=== PATIENT | female | born 1990 | race Two or more races ===

== ENCOUNTER 2019-12-11 21:43 | Outpatient (CLI) | payer OTHER | END 2019-12-11 21:44 | disposition critical access hospital (66) | LOC: EMS 21:43 | PROVIDERS: ATTEND Surgery | DX: O99.89 Other specified diseases and conditions complicating pregnancy, childbirth and the puerperium (principal); R10.9 Unspecified abdominal pain; R06.02 Shortness of breath; R68.83 Chills (without fever) | CPT/HCPCS: A0425; A0429 ==

== ENCOUNTER 2019-12-11 22:23 | Outpatient (CLI) | payer OTHER ==
--- NOTE | 2019-12-11 22:38 | HISTORY & PHYSICAL EXAMINATION ---
Admit History - Visit Reason Visit Reason: Other (29yo at 35 2/7 weeks by first trimester scan not c/w LMP; no records available however US documented for 9w4d done on 06/14/19. O+, GBS unknown. Presents with c/o dyspnea this evening, palpitations, dizziness and intermittent mid abdominal pain. Also notes suprapubic pain with voiding. No vaginal bleeding or fluid leak. C/O decreased movement when this all began, now notes it to be normal. No n/v/f/c or headache. No visual changes.) - : 3 Parity: 1 Premature: 0 Ectopic: 0 Care: positive: [facility], Other (Care in [place] until 1 week ago) Complications This : positive: Other (First trimester bleeding) Smoking Status: Never smoker - Mother's Labs Mother's Blood Type: positive: O Mother's RH: positive: Positive GBS: positive: Other Rubella Status: positive: Non-immune (GBS unknown RPR/HIV/HepB neg GC/chlam neg Glucola 89) Meds/Allgy - Allergies Allergies/Adverse Reactions: Allergies Allergy/AdvReac Type Severity Reaction Status Date / Time No Known Drug Allergies Allergy Verified 12/11/19 23:00 Review of Systems - Constitutional Constitutional: reports: Chills, Weakness - Eyes Eyes: denies: Blurred vision - Cardiovascular Cariovascular: reports: Palpitations, Lightheadedness. denies: Chest pain - Respiratory Respiratory: reports: SOB at rest, SOB with exertion. denies: Cough, Sputum production, Wheezing - Gastrointestinal Gastrointestinal: reports: Abdominal pain. denies: Nausea, Vomiting - Genitourinary Genitourinary: reports: Dysuria. denies: Flank pain - Neurological Neurological: reports: Dizziness. denies: Headache - Psychiatric Psychiatric: reports: Anxiety Physical - Abdominal Exam Vital Signs: 122/76 rpt 113/74 Pulse 90's O2 sat 98-100% on RA RR 16 afebrile Contraction Frequency (min/apart): q3-4 Contraction Intensity: positive: Mild to moderate Uterine Resting Tone: positive: Soft - Monitoring Heart Rate Baseline: 140's Strip Review: positive: Category I - Presentation Presentation: positive: Vertex - Vaginal Exam Membranes: positive: Membranes intact (Vertex by scan. Nml amniotic fluid volume, fundal placenta) Dilation (in cm): 0 Effacement (%): 0 Station: positive: -3 Cervical Position: positive: Posterior (Moderate DC c/w BV) - Speculum Exam Speculum Exam Performed: positive: Yes Plan for Labor - Plan For Labor Plan for Labor: 29yo at 35 2/7 weeks with intermittent tachycardia, dyspnea and dizziness, uterine contractions and suprapubic pain. Recent travel. Labs pending. Nasal swab sent for COVID IV hydration Serial vitals Category 1 tracing Exam - Exam Vital Signs: Vital Signs (72 hours) 12/11/19 12/11/19 22:38 22:52 Temperature 98.3 F 100.9 F H Heart Rate [ 136 H Monitoring electrodes] Respiratory 24 Rate Blood Pressure 144/73 H [Right Brachial artery] O2 Saturation 100 General: Alert, Oriented x3, Cooperative, Mild distress, Moderate distress Lungs: Clear to auscultation, Normal air movement Cardiovascular: Regular rate, Normal S1, Normal S2, Other (2/6 systolic murmur mahendra LSB. Borderline tachycardia) Abdomen: Normal bowel sounds, Soft, No masses (Mild contractions, suprapubic tenderness) Extremities: No edema Skin: No rashes Psych/Mental Status: Mental status NL
[2019-12-11 22:49] LABS: BASOPHILS # (AUTO) 0.1 10^3/uL (0.0-0.1); BASOPHILS % (AUTO) 0.5 %; EOSINOPHILS # (AUTO) 0.1 10^3/uL (0.0-0.7); EOSINOPHILS % (AUTO) 1.2 %; HGB - HEMOGLOBIN 11.5 g/dL (12.0-16.0); LYMPHOCYTES % (AUTO) 19.3 %; MEAN CORPUSCULAR HEMOGLOBIN 31.9 pg (27.0-31.0); MEAN CORPUSCULAR HGB CONC 34.3 g/dL (32.0-36.0); MEAN CORPUSCULAR VOLUME 93.1 fL (81.0-99.0); MEAN PLATELET VOLUME 9.8 fL (7.9-10.8); MONOCYTES # (AUTO) 0.7 10^3/uL (0.0-1.0); MONOCYTES % (AUTO) 6.7 %; NEUTROPHILS # (AUTO) 7.3 10^3/uL (1.5-6.6); NEUTROPHILS % (AUTO) 70.5 %; PLT - PLATELET COUNT 192 10^3/uL (130-450); RED CELL DISTRIBUTION WIDTH 12.3 % (12.0-15.0); WHITE BLOOD COUNT 10.4 x10^3/uL (4.8-10.8)
[2019-12-11] MEDS ORDERED: LACTATED RINGERS 1,000 ML IV ONE (22:58)
[2019-12-11 23:00] LABS: ALBUMIN 3.5 g/dL (3.2-5.5); BILIRUBIN,TOTAL 0.4 mg/dL (0.2-1.0); CALCIUM 8.8 mg/dL (8.5-10.3); CREATININE 0.3 mg/dL (0.4-1.0)
[2019-12-11 23:06] VITALS: BP 144/73
[2019-12-11 23:33] LABS: BILIRUBIN,URINE NEGATIVE (NEGATIVE); CLARITY,URINE CLEAR (CLEAR); GLUCOSE, URINE (UA) NEGATIVE (NEGATIVE); KETONES,URINE (UA) NEGATIVE (NEGATIVE); LEUKOCYTE ESTERASE, URINE SMALL (NEGATIVE); NITRITE,URINE NEGATIVE (NEGATIVE); OCCULT BLOOD,URINE TRACE-INTA (NEGATIVE); PH,URINE 6.5 PH (5.0-7.5); PROTEIN,URINE NEGATIVE (NEGATIVE); UROBILINOGEN,URINE 0.2 (NORMAL) E.U./dL (NORMAL)
[2019-12-11 23:38] LABS: BACTERIA,URINE Rare /HPF (None Seen); RBC,URINE 0-5 /HPF (0-5); SQUAMOUS EPITHELIAL CELL,UR MANY Squamous (<= Few)
--- NOTE | 2019-12-11 23:41 | PROVIDER PROGRESS NOTE ---
Subjective - Prog Note Date Prog Note Date: 12/11/19 Prog Note Time: 23:38 - Subjective Subjective: Up to BR and was dizzy, tachycardic 120-130's. Resolved with rest. Up again without symptoms. Rpt vitals temp 38.3 accompanied by rigors otherwise stable Exam unremarkable. CBC, CMP and UA returned all normal. Nasal swab pending. Continue obs and serial exams Objective - Vital Signs/Intake & Output Vital Signs: Vital Signs x48h Temp Pulse Resp BP Pulse Ox 12/11/19 22:52 100.9 F H 136 H 24 144/73 H 100 12/11/19 22:38 98.3 F - Lab Results Fish Bones: 12/11/19 22:42 12/11/19 22:42 Other Labs: Lab Results x24hrs 12/11/19 12/11/19 12/11/19 Range/Units 23:30 23:30 22:42 WBC (4.8-10.8) x10^3/uL RBC (4.20-5.40) 10^6/uL Hgb (12.0-16.0) g/dL Hct (37.0-47.0) % MCV (81.0-99.0) fL MCH (27.0-31.0) pg MCHC (32.0-36.0) g/dL RDW (12.0-15.0) % Plt Count (130-450) 10^3/uL MPV (7.9-10.8) fL Neut # (Auto) (1.5-6.6) 10^3/uL Lymph # (Auto) (1.5-3.5) 10^3/uL [place] # (Auto) (0.0-1.0) 10^3/uL Eos # (Auto) (0.0-0.7) 10^3/uL Baso # (Auto) (0.0-0.1) 10^3/uL Absolute Nucleated RBC x10^3/uL Nucleated RBC % /100WBC Sodium 131 L (135-145) mmol/L Potassium 3.7 (3.5-5.0) mmol/L Chloride 101 (101-111) mmol/L Carbon Dioxide 20 L (21-32) mmol/L Anion Gap 10.0 (6-13) BUN 10 (6-20) mg/dL Creatinine 0.3 L (0.4-1.0) mg/dL Estimated GFR (MDRD) 265 (>89) Glucose 99 (70-100) mg/dL Calcium 8.8 (8.5-10.3) mg/dL Total Bilirubin 0.4 (0.2-1.0) mg/dL AST 21 (10-42) IU/L ALT 12 (10-60) IU/L Alkaline Phosphatase 86 (42-121) IU/L Total Protein 7.0 (6.7-8.2) g/dL Albumin 3.5 (3.2-5.5) g/dL Globulin 3.5 (2.1-4.2) g/dL Albumin/Globulin Ratio 1.0 (1.0-2.2) Urine Color Cancelled YELLOW Urine Clarity Cancelled CLEAR (CLEAR) Urine pH Cancelled 6.5 (5.0-7.5) PH Ur Specific [place] Cancelled 1.015 (1.002-1.030) Urine Protein Cancelled NEGATIVE (NEGATIVE) mg/dL Urine Glucose (UA) Cancelled NEGATIVE (NEGATIVE) mg/dL Urine Ketones Cancelled NEGATIVE (NEGATIVE) mg/dL Urine Occult Blood Cancelled TRACE-INTA (NEGATIVE) Urine Nitrite Cancelled NEGATIVE (NEGATIVE) Urine Bilirubin Cancelled NEGATIVE (NEGATIVE) Urine Urobilinogen Cancelled 0.2 (NORMAL) (NORMAL) E.U./dL Ur Leukocyte Esterase Cancelled SMALL H (NEGATIVE) Urine RBC Cancelled Urine WBC Cancelled Urine WBC Clumps Cancelled Ur Epithelial Cells Cancelled Ur Squamous Epith Cells Cancelled Urine Crystals Cancelled Amorphous Sediment Cancelled Urine Bacteria Cancelled Urine Casts Cancelled Urine Starch Cancelled Urine Mucus Cancelled Urine Trichomonas Cancelled Urine Yeast Cancelled Urine Sperm Cancelled Ur Oval Fat Bodies Cancelled Urine Culture Comments Cancelled 12/11/19 Range/Units 22:42 WBC 10.4 (4.8-10.8) x10^3/uL RBC 3.60 L (4.20-5.40) 10^6/uL Hgb 11.5 L (12.0-16.0) g/dL Hct 33.5 L (37.0-47.0) % MCV 93.1 (81.0-99.0) fL MCH 31.9 H (27.0-31.0) pg MCHC 34.3 (32.0-36.0) g/dL RDW 12.3 (12.0-15.0) % Plt Count 192 (130-450) 10^3/uL MPV 9.8 (7.9-10.8) fL Neut # (Auto) 7.3 H (1.5-6.6) 10^3/uL Lymph # (Auto) 2.0 (1.5-3.5) 10^3/uL [place] # (Auto) 0.7 (0.0-1.0) 10^3/uL Eos # (Auto) 0.1 (0.0-0.7) 10^3/uL Baso # (Auto) 0.1 (0.0-0.1) 10^3/uL Absolute Nucleated RBC 0.00 x10^3/uL Nucleated RBC % 0.0 /100WBC Sodium (135-145) mmol/L Potassium (3.5-5.0) mmol/L Chloride (101-111) mmol/L Carbon Dioxide (21-32) mmol/L Anion Gap (6-13) BUN (6-20) mg/dL Creatinine (0.4-1.0) mg/dL Estimated GFR (MDRD) (>89) Glucose (70-100) mg/dL Calcium (8.5-10.3) mg/dL Total Bilirubin (0.2-1.0) mg/dL AST (10-42) IU/L ALT (10-60) IU/L Alkaline Phosphatase (42-121) IU/L Total Protein (6.7-8.2) g/dL Albumin (3.2-5.5) g/dL Globulin (2.1-4.2) g/dL Albumin/Globulin Ratio (1.0-2.2) Urine Color Urine Clarity (CLEAR) Urine pH (5.0-7.5) PH Ur Specific [place] (1.002-1.030) Urine Protein (NEGATIVE) mg/dL Urine Glucose (UA) (NEGATIVE) mg/dL Urine Ketones (NEGATIVE) mg/dL Urine Occult Blood (NEGATIVE) Urine Nitrite (NEGATIVE) Urine Bilirubin (NEGATIVE) Urine Urobilinogen (NORMAL) E.U./dL Ur Leukocyte Esterase (NEGATIVE) Urine RBC Urine WBC Urine WBC Clumps Ur Epithelial Cells Ur Squamous Epith Cells Urine Crystals Amorphous Sediment Urine Bacteria Urine Casts Urine Starch Urine Mucus Urine Trichomonas Urine Yeast Urine Sperm Ur Oval Fat Bodies Urine Culture Comments
[2019-12-11] MEDS ORDERED: FAMOTIDINE 20 MG TABLET PO SCH (23:45)
[2019-12-11] MEDS ORDERED: metroNIDAZOLE 250 MG TABLET PO SCH (23:45)
--- NOTE | 2019-12-11 23:54 | PROVIDER PROGRESS NOTE ---
Subjective - Prog Note Date Prog Note Date: 12/11/19 Prog Note Time: 23:52 - Subjective Subjective: More comfortable. Objective - Vital Signs/Intake & Output Vital Signs: Vital Signs x48h Temp Pulse Resp BP Pulse Ox 12/11/19 23:47 98.8 F 12/11/19 22:52 100.9 F H 136 H 24 144/73 H 100 12/11/19 22:38 98.3 F Vitals now normal. - Objective General Appearance: positive: No acute distress - Lab Results Fish Bones: 12/11/19 22:42 12/11/19 22:42 Other Labs: Lab Results x24hrs 12/11/19 12/11/19 12/11/19 Range/Units 23:30 23:30 22:42 WBC (4.8-10.8) x10^3/uL RBC (4.20-5.40) 10^6/uL Hgb (12.0-16.0) g/dL Hct (37.0-47.0) % MCV (81.0-99.0) fL MCH (27.0-31.0) pg MCHC (32.0-36.0) g/dL RDW (12.0-15.0) % Plt Count (130-450) 10^3/uL MPV (7.9-10.8) fL Neut # (Auto) (1.5-6.6) 10^3/uL Lymph # (Auto) (1.5-3.5) 10^3/uL [place] # (Auto) (0.0-1.0) 10^3/uL Eos # (Auto) (0.0-0.7) 10^3/uL Baso # (Auto) (0.0-0.1) 10^3/uL Absolute Nucleated RBC x10^3/uL Nucleated RBC % /100WBC Sodium 131 L (135-145) mmol/L Potassium 3.7 (3.5-5.0) mmol/L Chloride 101 (101-111) mmol/L Carbon Dioxide 20 L (21-32) mmol/L Anion Gap 10.0 (6-13) BUN 10 (6-20) mg/dL Creatinine 0.3 L (0.4-1.0) mg/dL Estimated GFR (MDRD) 265 (>89) Glucose 99 (70-100) mg/dL Calcium 8.8 (8.5-10.3) mg/dL Total Bilirubin 0.4 (0.2-1.0) mg/dL AST 21 (10-42) IU/L ALT 12 (10-60) IU/L Alkaline Phosphatase 86 (42-121) IU/L Total Protein 7.0 (6.7-8.2) g/dL Albumin 3.5 (3.2-5.5) g/dL Globulin 3.5 (2.1-4.2) g/dL Albumin/Globulin Ratio 1.0 (1.0-2.2) Urine Color Cancelled YELLOW Urine Clarity Cancelled CLEAR (CLEAR) Urine pH Cancelled 6.5 (5.0-7.5) PH Ur Specific [place] Cancelled 1.015 (1.002-1.030) Urine Protein Cancelled NEGATIVE (NEGATIVE) mg/dL Urine Glucose (UA) Cancelled NEGATIVE (NEGATIVE) mg/dL Urine Ketones Cancelled NEGATIVE (NEGATIVE) mg/dL Urine Occult Blood Cancelled TRACE-INTA (NEGATIVE) Urine Nitrite Cancelled NEGATIVE (NEGATIVE) Urine Bilirubin Cancelled NEGATIVE (NEGATIVE) Urine Urobilinogen Cancelled 0.2 (NORMAL) (NORMAL) E.U./dL Ur Leukocyte Esterase Cancelled SMALL H (NEGATIVE) Urine RBC Cancelled 0-5 (0-5) /HPF Urine WBC Cancelled 4-5 (0-5) /HPF Urine WBC Clumps Cancelled Ur Epithelial Cells Cancelled Ur Squamous Epith Cells Cancelled MANY Squamous H (<= Few) Urine Crystals Cancelled Amorphous Sediment Cancelled Urine Bacteria Cancelled Rare (None Seen) /HPF Urine Casts Cancelled Urine Starch Cancelled Urine Mucus Cancelled Urine Trichomonas Cancelled Urine Yeast Cancelled Urine Sperm Cancelled Ur Oval Fat Bodies Cancelled Urine Culture Comments Cancelled NOT INDICATED 12/11/19 Range/Units 22:42 WBC 10.4 (4.8-10.8) x10^3/uL RBC 3.60 L (4.20-5.40) 10^6/uL Hgb 11.5 L (12.0-16.0) g/dL Hct 33.5 L (37.0-47.0) % MCV 93.1 (81.0-99.0) fL MCH 31.9 H (27.0-31.0) pg MCHC 34.3 (32.0-36.0) g/dL RDW 12.3 (12.0-15.0) % Plt Count 192 (130-450) 10^3/uL MPV 9.8 (7.9-10.8) fL Neut # (Auto) 7.3 H (1.5-6.6) 10^3/uL Lymph # (Auto) 2.0 (1.5-3.5) 10^3/uL [place] # (Auto) 0.7 (0.0-1.0) 10^3/uL Eos # (Auto) 0.1 (0.0-0.7) 10^3/uL Baso # (Auto) 0.1 (0.0-0.1) 10^3/uL Absolute Nucleated RBC 0.00 x10^3/uL Nucleated RBC % 0.0 /100WBC Sodium (135-145) mmol/L Potassium (3.5-5.0) mmol/L Chloride (101-111) mmol/L Carbon Dioxide (21-32) mmol/L Anion Gap (6-13) BUN (6-20) mg/dL Creatinine (0.4-1.0) mg/dL Estimated GFR (MDRD) (>89) Glucose (70-100) mg/dL Calcium (8.5-10.3) mg/dL Total Bilirubin (0.2-1.0) mg/dL AST (10-42) IU/L ALT (10-60) IU/L Alkaline Phosphatase (42-121) IU/L Total Protein (6.7-8.2) g/dL Albumin (3.2-5.5) g/dL Globulin (2.1-4.2) g/dL Albumin/Globulin Ratio (1.0-2.2) Urine Color Urine Clarity (CLEAR) Urine pH (5.0-7.5) PH Ur Specific [place] (1.002-1.030) Urine Protein (NEGATIVE) mg/dL Urine Glucose (UA) (NEGATIVE) mg/dL Urine Ketones (NEGATIVE) mg/dL Urine Occult Blood (NEGATIVE) Urine Nitrite (NEGATIVE) Urine Bilirubin (NEGATIVE) Urine Urobilinogen (NORMAL) E.U./dL Ur Leukocyte Esterase (NEGATIVE) Urine RBC (0-5) /HPF Urine WBC (0-5) /HPF Urine WBC Clumps Ur Epithelial Cells Ur Squamous Epith Cells (<= Few) Urine Crystals Amorphous Sediment Urine Bacteria (None Seen) /HPF Urine Casts Urine Starch Urine Mucus Urine Trichomonas Urine Yeast Urine Sperm Ur Oval Fat Bodies Urine Culture Comments - Other Results/Comments Other Results/Comments: Now afebrile again, 37.1, normal vitals Continue obs for now
--- NOTE | 2019-12-12 00:10 | PROVIDER PROGRESS NOTE ---
Subjective - Prog Note Date Prog Note Date: 12/12/19 Prog Note Time: 00:06 - Subjective Pt reports feeling: Improved (Feeling completely fine now. Denies continued dyspnea, no dizzines last time up to BR. Feeling baby moving. States no longer feeling any abdominal pain.) Objective - Vital Signs/Intake & Output Reviewed Vital Signs: Yes Vital Signs: Vital Signs x48h Temp Pulse Resp BP Pulse Ox 12/11/19 23:47 98.8 F 12/11/19 22:52 100.9 F H 136 H 24 144/73 H 100 12/11/19 22:38 98.3 F Stable, normal BP's 110's/70's Afebrile P 90-100 O2 sat 98-100 RA RR 16-18 Category 1 tracing Contractions still noted although very mild, pt no longer feeling them A/P Complete fluid bolus. Treat BV DC home to quarantine until results available - Objective General Appearance: positive: No acute distress, Alert (Very comfortable.) - Lab Results Fish Bones: 12/11/19 22:42 12/11/19 22:42 Other Labs: Lab Results x24hrs 12/11/19 12/11/19 12/11/19 Range/Units 23:30 23:30 22:42 WBC (4.8-10.8) x10^3/uL RBC (4.20-5.40) 10^6/uL Hgb (12.0-16.0) g/dL Hct (37.0-47.0) % MCV (81.0-99.0) fL MCH (27.0-31.0) pg MCHC (32.0-36.0) g/dL RDW (12.0-15.0) % Plt Count (130-450) 10^3/uL MPV (7.9-10.8) fL Neut # (Auto) (1.5-6.6) 10^3/uL Lymph # (Auto) (1.5-3.5) 10^3/uL [place] # (Auto) (0.0-1.0) 10^3/uL Eos # (Auto) (0.0-0.7) 10^3/uL Baso # (Auto) (0.0-0.1) 10^3/uL Absolute Nucleated RBC x10^3/uL Nucleated RBC % /100WBC Sodium 131 L (135-145) mmol/L Potassium 3.7 (3.5-5.0) mmol/L Chloride 101 (101-111) mmol/L Carbon Dioxide 20 L (21-32) mmol/L Anion Gap 10.0 (6-13) BUN 10 (6-20) mg/dL Creatinine 0.3 L (0.4-1.0) mg/dL Estimated GFR (MDRD) 265 (>89) Glucose 99 (70-100) mg/dL Calcium 8.8 (8.5-10.3) mg/dL Total Bilirubin 0.4 (0.2-1.0) mg/dL AST 21 (10-42) IU/L ALT 12 (10-60) IU/L Alkaline Phosphatase 86 (42-121) IU/L Total Protein 7.0 (6.7-8.2) g/dL Albumin 3.5 (3.2-5.5) g/dL Globulin 3.5 (2.1-4.2) g/dL Albumin/Globulin Ratio 1.0 (1.0-2.2) Urine Color Cancelled YELLOW Urine Clarity Cancelled CLEAR (CLEAR) Urine pH Cancelled 6.5 (5.0-7.5) PH Ur Specific [place] Cancelled 1.015 (1.002-1.030) Urine Protein Cancelled NEGATIVE (NEGATIVE) mg/dL Urine Glucose (UA) Cancelled NEGATIVE (NEGATIVE) mg/dL Urine Ketones Cancelled NEGATIVE (NEGATIVE) mg/dL Urine Occult Blood Cancelled TRACE-INTA (NEGATIVE) Urine Nitrite Cancelled NEGATIVE (NEGATIVE) Urine Bilirubin Cancelled NEGATIVE (NEGATIVE) Urine Urobilinogen Cancelled 0.2 (NORMAL) (NORMAL) E.U./dL Ur Leukocyte Esterase Cancelled SMALL H (NEGATIVE) Urine RBC Cancelled 0-5 (0-5) /HPF Urine WBC Cancelled 4-5 (0-5) /HPF Urine WBC Clumps Cancelled Ur Epithelial Cells Cancelled Ur Squamous Epith Cells Cancelled MANY Squamous H (<= Few) Urine Crystals Cancelled Amorphous Sediment Cancelled Urine Bacteria Cancelled Rare (None Seen) /HPF Urine Casts Cancelled Urine Starch Cancelled Urine Mucus Cancelled Urine Trichomonas Cancelled Urine Yeast Cancelled Urine Sperm Cancelled Ur Oval Fat Bodies Cancelled Urine Culture Comments Cancelled NOT INDICATED 12/11/19 Range/Units 22:42 WBC 10.4 (4.8-10.8) x10^3/uL RBC 3.60 L (4.20-5.40) 10^6/uL Hgb 11.5 L (12.0-16.0) g/dL Hct 33.5 L (37.0-47.0) % MCV 93.1 (81.0-99.0) fL MCH 31.9 H (27.0-31.0) pg MCHC 34.3 (32.0-36.0) g/dL RDW 12.3 (12.0-15.0) % Plt Count 192 (130-450) 10^3/uL MPV 9.8 (7.9-10.8) fL Neut # (Auto) 7.3 H (1.5-6.6) 10^3/uL Lymph # (Auto) 2.0 (1.5-3.5) 10^3/uL [place] # (Auto) 0.7 (0.0-1.0) 10^3/uL Eos # (Auto) 0.1 (0.0-0.7) 10^3/uL Baso # (Auto) 0.1 (0.0-0.1) 10^3/uL Absolute Nucleated RBC 0.00 x10^3/uL Nucleated RBC % 0.0 /100WBC Sodium (135-145) mmol/L Potassium (3.5-5.0) mmol/L Chloride (101-111) mmol/L Carbon Dioxide (21-32) mmol/L Anion Gap (6-13) BUN (6-20) mg/dL Creatinine (0.4-1.0) mg/dL Estimated GFR (MDRD) (>89) Glucose (70-100) mg/dL Calcium (8.5-10.3) mg/dL Total Bilirubin (0.2-1.0) mg/dL AST (10-42) IU/L ALT (10-60) IU/L Alkaline Phosphatase (42-121) IU/L Total Protein (6.7-8.2) g/dL Albumin (3.2-5.5) g/dL Globulin (2.1-4.2) g/dL Albumin/Globulin Ratio (1.0-2.2) Urine Color Urine Clarity (CLEAR) Urine pH (5.0-7.5) PH Ur Specific [place] (1.002-1.030) Urine Protein (NEGATIVE) mg/dL Urine Glucose (UA) (NEGATIVE) mg/dL Urine Ketones (NEGATIVE) mg/dL Urine Occult Blood (NEGATIVE) Urine Nitrite (NEGATIVE) Urine Bilirubin (NEGATIVE) Urine Urobilinogen (NORMAL) E.U./dL Ur Leukocyte Esterase (NEGATIVE) Urine RBC (0-5) /HPF Urine WBC (0-5) /HPF Urine WBC Clumps Ur Epithelial Cells Ur Squamous Epith Cells (<= Few) Urine Crystals Amorphous Sediment Urine Bacteria (None Seen) /HPF Urine Casts Urine Starch Urine Mucus Urine Trichomonas Urine Yeast Urine Sperm Ur Oval Fat Bodies Urine Culture Comments - Other Results/Comments Other Results/Comments: Feeling well. No acute process; c/w panic attack. Will treat BV. Swab pending Quarantine until result available, then continue care as scheduled.
--- NOTE | 2019-12-12 00:26 | PROVIDER PROGRESS NOTE ---
Subjective - Prog Note Date Prog Note Date: 12/12/19 Prog Note Time: 00:24 - Subjective Subjective: Contractions resolved. Otherwise asymptomatic. Exam benign BP112/74 Pulse 90's RR 16 Category 1 tracing Precautions discussed. Plan as noted. Objective - Vital Signs/Intake & Output Vital Signs: Vital Signs x48h Temp Pulse Resp BP Pulse Ox 12/11/19 23:47 98.8 F 12/11/19 22:52 100.9 F H 136 H 24 144/73 H 100 12/11/19 22:38 98.3 F - Lab Results Fish Bones: 12/11/19 22:42 12/11/19 22:42 Other Labs: Lab Results x24hrs 12/11/19 12/11/19 12/11/19 Range/Units 23:30 23:30 22:42 WBC (4.8-10.8) x10^3/uL RBC (4.20-5.40) 10^6/uL Hgb (12.0-16.0) g/dL Hct (37.0-47.0) % MCV (81.0-99.0) fL MCH (27.0-31.0) pg MCHC (32.0-36.0) g/dL RDW (12.0-15.0) % Plt Count (130-450) 10^3/uL MPV (7.9-10.8) fL Neut # (Auto) (1.5-6.6) 10^3/uL Lymph # (Auto) (1.5-3.5) 10^3/uL [place] # (Auto) (0.0-1.0) 10^3/uL Eos # (Auto) (0.0-0.7) 10^3/uL Baso # (Auto) (0.0-0.1) 10^3/uL Absolute Nucleated RBC x10^3/uL Nucleated RBC % /100WBC Sodium 131 L (135-145) mmol/L Potassium 3.7 (3.5-5.0) mmol/L Chloride 101 (101-111) mmol/L Carbon Dioxide 20 L (21-32) mmol/L Anion Gap 10.0 (6-13) BUN 10 (6-20) mg/dL Creatinine 0.3 L (0.4-1.0) mg/dL Estimated GFR (MDRD) 265 (>89) Glucose 99 (70-100) mg/dL Calcium 8.8 (8.5-10.3) mg/dL Total Bilirubin 0.4 (0.2-1.0) mg/dL AST 21 (10-42) IU/L ALT 12 (10-60) IU/L Alkaline Phosphatase 86 (42-121) IU/L Total Protein 7.0 (6.7-8.2) g/dL Albumin 3.5 (3.2-5.5) g/dL Globulin 3.5 (2.1-4.2) g/dL Albumin/Globulin Ratio 1.0 (1.0-2.2) Urine Color Cancelled YELLOW Urine Clarity Cancelled CLEAR (CLEAR) Urine pH Cancelled 6.5 (5.0-7.5) PH Ur Specific [place] Cancelled 1.015 (1.002-1.030) Urine Protein Cancelled NEGATIVE (NEGATIVE) mg/dL Urine Glucose (UA) Cancelled NEGATIVE (NEGATIVE) mg/dL Urine Ketones Cancelled NEGATIVE (NEGATIVE) mg/dL Urine Occult Blood Cancelled TRACE-INTA (NEGATIVE) Urine Nitrite Cancelled NEGATIVE (NEGATIVE) Urine Bilirubin Cancelled NEGATIVE (NEGATIVE) Urine Urobilinogen Cancelled 0.2 (NORMAL) (NORMAL) E.U./dL Ur Leukocyte Esterase Cancelled SMALL H (NEGATIVE) Urine RBC Cancelled 0-5 (0-5) /HPF Urine WBC Cancelled 4-5 (0-5) /HPF Urine WBC Clumps Cancelled Ur Epithelial Cells Cancelled Ur Squamous Epith Cells Cancelled MANY Squamous H (<= Few) Urine Crystals Cancelled Amorphous Sediment Cancelled Urine Bacteria Cancelled Rare (None Seen) /HPF Urine Casts Cancelled Urine Starch Cancelled Urine Mucus Cancelled Urine Trichomonas Cancelled Urine Yeast Cancelled Urine Sperm Cancelled Ur Oval Fat Bodies Cancelled Urine Culture Comments Cancelled NOT INDICATED 12/11/19 Range/Units 22:42 WBC 10.4 (4.8-10.8) x10^3/uL RBC 3.60 L (4.20-5.40) 10^6/uL Hgb 11.5 L (12.0-16.0) g/dL Hct 33.5 L (37.0-47.0) % MCV 93.1 (81.0-99.0) fL MCH 31.9 H (27.0-31.0) pg MCHC 34.3 (32.0-36.0) g/dL RDW 12.3 (12.0-15.0) % Plt Count 192 (130-450) 10^3/uL MPV 9.8 (7.9-10.8) fL Neut # (Auto) 7.3 H (1.5-6.6) 10^3/uL Lymph # (Auto) 2.0 (1.5-3.5) 10^3/uL [place] # (Auto) 0.7 (0.0-1.0) 10^3/uL Eos # (Auto) 0.1 (0.0-0.7) 10^3/uL Baso # (Auto) 0.1 (0.0-0.1) 10^3/uL Absolute Nucleated RBC 0.00 x10^3/uL Nucleated RBC % 0.0 /100WBC Sodium (135-145) mmol/L Potassium (3.5-5.0) mmol/L Chloride (101-111) mmol/L Carbon Dioxide (21-32) mmol/L Anion Gap (6-13) BUN (6-20) mg/dL Creatinine (0.4-1.0) mg/dL Estimated GFR (MDRD) (>89) Glucose (70-100) mg/dL Calcium (8.5-10.3) mg/dL Total Bilirubin (0.2-1.0) mg/dL AST (10-42) IU/L ALT (10-60) IU/L Alkaline Phosphatase (42-121) IU/L Total Protein (6.7-8.2) g/dL Albumin (3.2-5.5) g/dL Globulin (2.1-4.2) g/dL Albumin/Globulin Ratio (1.0-2.2) Urine Color Urine Clarity (CLEAR) Urine pH (5.0-7.5) PH Ur Specific [place] (1.002-1.030) Urine Protein (NEGATIVE) mg/dL Urine Glucose (UA) (NEGATIVE) mg/dL Urine Ketones (NEGATIVE) mg/dL Urine Occult Blood (NEGATIVE) Urine Nitrite (NEGATIVE) Urine Bilirubin (NEGATIVE) Urine Urobilinogen (NORMAL) E.U./dL Ur Leukocyte Esterase (NEGATIVE) Urine RBC (0-5) /HPF Urine WBC (0-5) /HPF Urine WBC Clumps Ur Epithelial Cells Ur Squamous Epith Cells (<= Few) Urine Crystals Amorphous Sediment Urine Bacteria (None Seen) /HPF Urine Casts Urine Starch Urine Mucus Urine Trichomonas Urine Yeast Urine Sperm Ur Oval Fat Bodies Urine Culture Comments
[2019-12-12 21:05] LABS: TRICHOMONAS VAGINALIS DNA NEGATIVE (NEGATIVE)
== END 2019-12-12 00:45 | disposition home or self-care (01) ==
LOC: WFO 22:23 → FBP 22:34 → WFO 12-12 00:45
PROVIDERS: ATTEND Obstetrics & Gynecology
DX: O23.593 Infection of other part of genital tract in pregnancy, third trimester (principal); B96.89 Other specified bacterial agents as the cause of diseases classified elsewhere; Z3A.35 35 weeks gestation of pregnancy; O99.89 Other specified diseases and conditions complicating pregnancy, childbirth and the puerperium; R06.00 Dyspnea, unspecified; R00.0 Tachycardia, unspecified; R30.0 Dysuria
CPT/HCPCS: 36415; 80053; 81001; 85025; 87491; 87591; 87635; 87661; 87797; 99214; A9270; J7120; 81599; 87086

== ENCOUNTER 2019-12-20 07:00 | Outpatient (CLI) | payer OTHER ==
[2019-12-20 21:11] LABS: TRICHOMONAS VAGINALIS DNA NEGATIVE (NEGATIVE)
== END 2019-12-20 23:59 | disposition home or self-care (01) ==
LOC: LAB.R 07:00
PROVIDERS: ATTEND Advanced Practice Midwife
DX: Z36.85 Encounter for antenatal screening for Streptococcus B (principal)
CPT/HCPCS: 87491; 87591; 87661; 87797

== ENCOUNTER 2020-01-12 07:06 | Inpatient (IN) | payer OTHER ==
[2020-01-12] MEDS ORDERED: ONDANSETRON 4 MG/2 ML VIAL IVP PRN ×2 (07:16→09:08)
[2020-01-12] MEDS ORDERED: fentaNYL 100 MCG/2 ML VIAL IVP PRN (07:16)
[2020-01-12] MEDS ORDERED: SODIUM CHLORIDE FLUSH 0.9% 10 ML SYRINGE IVP PRN (07:16)
[2020-01-12] MEDS ORDERED: OXYTOCIN/SODIUM CHLORIDE 500 ML IV PRN (07:16)
--- NOTE | 2020-01-12 07:23 | HISTORY & PHYSICAL EXAMINATION ---
Admit History - Visit Reason Visit Reason: Contractions - : 3 Parity: 1 Premature: 0 Ectopic: 0 : 1 Care: positive: Rj CORBIN Risk/History: positive: None Complications This : positive: None Smoking Status: Never smoker - Mother's Labs Mother's Blood Type: positive: O Mother's RH: positive: Positive GBS: positive: Group B Step Negative Rubella Status: positive: Non-immune - Other Maternal History Other Maternal History: L&D Admit 29yo at 39.4wks gestation presents to L&D in active labor Ctx/FHTs FM/VB/LOF Care- adequate care to 34.2 weeks at [facility] then transfer of care to [facility] complications *none Dating Criteria *Initial U/S: 06/14/2019 at 9w4d, consistent with LMP OB Hx G1: 2013 SAB G2: 2018 40wks G3: Current Medications- *VITAMIN D3 1000 UNIT ORAL TABLET (CHOLECALCIFEROL) Take one tablet by mouth everyday; Route: ORAL *FERROUS SULFATE 325 (65 FE) MG ORAL TABLET (FERROUS SULFATE) Takeo one tablet by mouth everyday; Route: ORAL *COLACE 100 MG ORAL CAPSULE (DOCUSATE SODIUM) ; Route: ORAL *PRE-NIDIA FORMULA ORAL TABLET ( [id number]) Take one tablet by mouth once a day; Route: ORAL Allergies *None Medical History *Non-contributory Surgical History *Silicone breast implant Family History *Non-contributory Social History- never smoker *Spouse unable to attend r/t COVID and lack of childcare Labs * O Positive * Tubella *non immune* * Genetic- declined * GBS- negative * Glucola- 89 Immunizations * TDAP: 12/20/2019 SVE/Ctx */-1 per RN on admit *Actively sarita q3-4min *FHT baseline 150, moderate variability, 15x15 accels noted Assessment 29yo at 39.4 wks gestation by first trimester US presents in active labor Cat I strip Plan * Admit to Labor and Delivery * Monitoring- Continuous * Comfort measures available- fentanyl and epidural as well as non pharmacological support measures * Diet/Activity- to pt tolerance * Anticipate Meds/Allgy - Home Medications Home Medications: Ambulatory Orders Medication Instructions Recorded Confirmed Famotidine 10 mg PO BID 30 Days #60 tablet 12/12/19 - Allergies Allergies/Adverse Reactions: Allergies Allergy/AdvReac Type Severity Reaction Status Date / Time No Known Drug Allergies Allergy Verified 12/11/19 23:00 Review of Systems - Constitutional Constitutional: reports: Fatigue. denies: Fever, Chills, Weakness - Eyes Eyes: denies: Blurred vision, Spots in vision, Field loss, Vision loss - Ears, Nose & Throat Ears, Nose & Throat: denies: Vertigo, Nasal discharge, Sore throat, Hoarseness - Cardiovascular Cariovascular: denies: Palpitations, Chest pain, Edema - Respiratory Respiratory: denies: Cough, Sputum production, Apnea - Gastrointestinal Gastrointestinal: denies: Constipation, Diarrhea, Nausea, Vomiting, Reflux/heartburn - Genitourinary Genitourinary: denies: Dysuria, Hematuria - Musculoskeletal Musculoskeletal: denies: Muscle aches, Muscle weakness - Integumentary Integumentary: denies: Pruritis, Lesions - Neurological Neurological: denies: General weakness, Headache, Numbness - Psychiatric Psychiatric: denies: Depression, Anxiety Physical - Abdominal Exam Vital Signs: BP 121/81 Pulse 84 Temp 98.6 F Contraction Frequency (min/apart): 3-4 Contraction Intensity: positive: Moderate to strong Uterine Resting Tone: positive: Soft - Monitoring Heart Rate Baseline: 150 Strip Review: positive: Category I - Presentation Presentation: positive: Vertex - Vaginal Exam Membranes: positive: Membranes intact
[2020-01-12] MEDS: SODIUM CHLORIDE FLUSH 0.9% 10 ML SYRINGE IVP SCH (07:45)
[2020-01-12] MEDS: LACTATED RINGERS 1,000 ML IV SCH ×2 (07:55→11:36)
[2020-01-12] MEDS ORDERED: ACETAMINOPHEN 325 MG TABLET PO SCH (08:00)
[2020-01-12 08:19] LABS: BASOPHILS % (AUTO) 0.4 %; EOSINOPHILS # (AUTO) 0.1 10^3/uL (0.0-0.7); EOSINOPHILS % (AUTO) 0.5 %; HGB - HEMOGLOBIN 12.6 g/dL (12.0-16.0); LYMPHOCYTES # (AUTO) 2.5 10^3/uL (1.5-3.5); LYMPHOCYTES % (AUTO) 23.3 %; MEAN CORPUSCULAR HEMOGLOBIN 32.4 pg (27.0-31.0); MEAN CORPUSCULAR HGB CONC 34.6 g/dL (32.0-36.0); MEAN CORPUSCULAR VOLUME 93.6 fL (81.0-99.0); MEAN PLATELET VOLUME 9.8 fL (7.9-10.8); MONOCYTES # (AUTO) 0.7 10^3/uL (0.0-1.0); MONOCYTES % (AUTO) 6.1 %; NEUTROPHILS # (AUTO) 7.5 10^3/uL (1.5-6.6); NEUTROPHILS % (AUTO) 68.6 %; PLT - PLATELET COUNT 196 10^3/uL (130-450); RED BLOOD COUNT 3.89 10^6/uL (4.20-5.40); RED CELL DISTRIBUTION WIDTH 12.6 % (12.0-15.0); WHITE BLOOD COUNT 10.9 x10^3/uL (4.8-10.8)
[2020-01-12] MEDS ORDERED: ROPIVACAINE 0.2% 200 MG/100 ML BAG EP ONE (08:36)
[2020-01-12] MEDS ORDERED: NALOXONE 0.4 MG/ML VIAL IVP PRN (09:08)
[2020-01-12] MEDS ORDERED: NALBUPHINE 10 MG/ML AMP IVP PRN (09:08)
[2020-01-12] MEDS ORDERED: ROPIVACAINE 0.2% 200 MG/100 ML BAG EP PRN (09:08)
[2020-01-12] MEDS ORDERED: LACTATED RINGERS 500 ML IV ONE (09:08)
[2020-01-12] MEDS ORDERED: diphenhydrAMINE INJ 50 MG/ML VIAL IVP PRN (09:08)
[2020-01-12] MEDS ORDERED: ePHEDrine 50 MG/ML VIAL IVP PRN (09:08)
[2020-01-12] MEDS ORDERED: METOCLOPRAMIDE 10 MG/2 ML VIAL IVP PRN (09:08)
--- NOTE | 2020-01-12 09:12 | ANESTHESIA ---
Pre-Anesthesia VS, & Labs - Diagnosis active labor - Procedure labor epidural Vital Signs: Temp Pulse Resp BP Pulse Ox 36.8 C 01/12/20 07:39 Height 5 ft 2 in Weight (kg) 71.668 kg - NPO >8 hours - Is Patient ?: Yes - Lab Results Current Lab Results: Laboratory Tests 01/12/20 08:10: WBC 10.9 H, RBC 3.89 L, Hgb 12.6, Hct 36.4 L, MCV 93.6, MCH 32.4 H, MCHC 34.6, RDW 12.6, Plt Count 196, MPV 9.8, Neut # (Auto) 7.5 H, Lymph # (Auto) 2.5, Ada # (Auto) 0.7, Eos # (Auto) 0.1, Baso # (Auto) 0.0, Absolute Nucleated RBC 0.00, Nucleated RBC % 0.0 Fish Bones: 01/12/20 08:10 Home Medications and Allergies Active Medications Acetaminophen (Tylenol) 650 mg PO Q6H PHYLLIS Diphenhydramine HCl (Benadryl Inj) 12.5 - 25 mg IVP Q6HR PRN PRN Reason: ITCHING Ephedrine Sulfate () 5 mg IVP Q5M PRN PRN Reason: For SBP<100;give until SBP>100 Fentanyl (Fentanyl) 50 mcg IVP Q1H PRN PRN Reason: PAIN Last Admin: 01/12/20 08:11 Dose: 50 mcg Lactated Ringer's (Lr) 1,000 mls @ 150 mls/hr IV .Q6H40M PHYLLIS Last Admin: 01/12/20 07:55 Dose: 150 mls/hr Oxytocin/Sodium Chloride (Pitocin/Sodium Chloride) 500 mls @ 999 mls/hr IV PRN PRN; Protocol PRN Reason: POST- HEMORR PREVENTION Lactated Ringer's (Lr) 500 mls @ 999 mls/hr IV ONCE ONE Stop: 01/12/20 09:38 Ropivacaine (Naropin 0.2%) 200 mg in 100 mls @ 0 mls/hr EP PRN PRN; Protocol PRN Reason: PAIN Metoclopramide HCl (Reglan Inj) 10 mg IVP Q6HR PRN PRN Reason: Nausea / Vomiting Nalbuphine HCl (Nubain) 2.5 - 5 mg IVP Q4H PRN PRN Reason: ITCHING Naloxone HCl (Narcan) 0.1 mg IVP Q2M PRN PRN Reason: RR<8 Ondansetron HCl (Zofran Inj) 4 mg IVP Q4H PRN PRN Reason: Nausea / Vomiting Ondansetron HCl (Zofran Inj) 4 mg IVP Q6HR PRN PRN Reason: Nausea / Vomiting Sodium Chloride (Normal Saline Flush 0.9%) 10 ml IVP PRN PRN PRN Reason: NEEDED PER PROVIDER ORDERS Sodium Chloride (Normal Saline Flush 0.9%) 10 ml IVP 0100,0900,1700 PHYLLIS Last Admin: 01/12/20 07:45 Dose: 10 ml Allergies/Adverse Reactions: Allergies Allergy/AdvReac Type Severity Reaction Status Date / Time No Known Drug Allergies Allergy Verified 12/11/19 23:00 Anes History & Medical History - Anesthetic History Anesthesia Complications: reports: No previous complications - Medical History Cardiovascular: reports: None Pulmonary: reports: None Gastrointestinal: reports: GERD Urinary: reports: None Neuro: reports: None Musculoskeletal: reports: None Endocrine/Autoimmune: reports: None Blood Disorders: reports: None Smoking Status: Never smoker - Obstetrical History : 3 Parity: 1 Events: positive: None Complications: positive: None Exam General: Alert Dental: WNL Mouth Opening: Greater than 4 Fingerbreadths Neck Mobility: Normal Mallampati classification: II Thyromental Distance: greater than 6 cm Respiratory: Lungs clear Cardiovascular: Regular rate Plan Anesthesia Type: Epidural Consent for Procedure(s) Verified and Reviewed: Yes Code Status: Attempt Resuscitation ASA classification: 2-Mild systemic disease Is this case an emergency?: No
[2020-01-12] MEDS: CALCIUM CARBONATE CHEW 500 MG TABLET PO SCH ×2 (11:32→21:38)
--- NOTE | 2020-01-12 14:04 | PROVIDER PROGRESS NOTE ---
Subjective - Prog Note Date Prog Note Date: 01/12/20 Prog Note Time: 14:02 - Subjective Subjective: Pt feeling a lot of pressure, wants to push VSS afeb Contractions q2-3 Category 1 VE Fully dilated, +1 A/P Will inform CNM Expect Objective - Vital Signs/Intake & Output Vital Signs: Vital Signs x48h Temp 01/12/20 07:39 98.2 F Intake & Output: Intake & Output 01/09/20 01/10/20 01/11/20 01/12/20 23:59 23:59 23:59 23:59 Intake Total 552.5 Output Total 0 Balance 552.5 - Lab Results Fish Bones: 01/12/20 08:10 Other Labs: Lab Results x24hrs 01/12/20 Range/Units 08:10 WBC 10.9 H (4.8-10.8) x10^3/uL RBC 3.89 L (4.20-5.40) 10^6/uL Hgb 12.6 (12.0-16.0) g/dL Hct 36.4 L (37.0-47.0) % MCV 93.6 (81.0-99.0) fL MCH 32.4 H (27.0-31.0) pg MCHC 34.6 (32.0-36.0) g/dL RDW 12.6 (12.0-15.0) % Plt Count 196 (130-450) 10^3/uL MPV 9.8 (7.9-10.8) fL Neut # (Auto) 7.5 H (1.5-6.6) 10^3/uL Lymph # (Auto) 2.5 (1.5-3.5) 10^3/uL [place] # (Auto) 0.7 (0.0-1.0) 10^3/uL Eos # (Auto) 0.1 (0.0-0.7) 10^3/uL Baso # (Auto) 0.0 (0.0-0.1) 10^3/uL Absolute Nucleated RBC 0.00 x10^3/uL Nucleated RBC % 0.0 /100WBC
[2020-01-12] MEDS ORDERED: WITCH HAZEL/GLYCERIN 1 PAD TOP PRN (15:03)
[2020-01-12] MEDS ORDERED: ACETAMINOPHEN 325 MG TABLET PO PRN (15:05)
--- NOTE | 2020-01-12 15:12 | DELIVERY NOTE ---
Delivery Note - Labor Labor: positive: Spontaneous - Delivery Method Delivery Method: positive: Spontaneous vaginal delivery - Presentation Presentation: positive: Vertex, CARMINA - right occiput anterior - Nuchal Cord Nuchal Cord: positive: None - Anesthetic Anesthetic Type: - Amniotic Fluid Description Amniotic Fluid Description: positive: Clear - Laceration Laceration: positive: None - Delivery Outcome Delivery Outcome: positive: Livebirth - [place]: positive: Placed in direct skin contact with mother, Stimulated, [place] used sex: positive: Female : 9 : 9 - Cord Cord: positive: 3 vessels - Placenta Placenta: positive: Intact, Spontaneous - Estimated Blood Loss Estimated Blood Loss (in cc): 150 - Post Delivery Events Post Delivery Events: positive: No post delivery events - Delivery Comments (Free Text/Narrative) Delivery Comments (Free Text/Narrative): Note: Labor: This 29 year old, , @39.4 wks gestation by first trimester ultrasound, confirmed by LMP, presented @ 0700 in active labor . Cervix was 6/90/-1 and vertex. FHR pattern demonstrated 140 baseline in a Category I pattern. Normal labor course. Epidural placed upon maternal request. AROM occurred @ 1005 and amount and color of fluid were noted to be moderate and clear. Progressed to c/c+1 at 1400 and began effective pushing at 1410. : Normal of a female infant on 01/12/2020 @ 1442. Nuchal not present. The was placed on maternal abdomen, stimulated, dried and placed skin to skin. Apgars 9 at one minute and 9 at five minutes. The umbilical cord was allowed to stop pulsating at which time it was doubly clamped by ANTWAN and cut by Rosa Maria. Pitocin administered via IV for hemostasis. Fundal massage and gentle cord traction applied for active third stage management. Cord blood was obtained. Placenta delivered spontaneously and intact at 1453. Three vessel cord. EBL 150 mL. Fourth Stage: Uterine fundus firm and without excessive bleeding. The perineum, vagina, and cervix were inspected and found to be intact. encouraged. Family bonding well. Both mother and baby are in stable condition.
[2020-01-12] MEDS ORDERED: MEASLES,MUMPS & RUBELLA VACC 0.5 ML VIAL SUBQ ONE (16:00)
[2020-01-12] MEDS: IBUPROFEN 600 MG TABLET PO SCH (18:19)
[2020-01-12] MEDS: DOCUSATE SODIUM 100 MG CAPSULE PO SCH (22:07)
[2020-01-13] MEDS: IBUPROFEN 600 MG TABLET PO SCH ×3 (01:13→14:36)
[2020-01-13] MEDS: DOCUSATE SODIUM 100 MG CAPSULE PO SCH (09:06)
[2020-01-13] MEDS: SODIUM CHLORIDE FLUSH 0.9% 10 ML SYRINGE IVP SCH (10:37)
[2020-01-13] MEDS: LACTATED RINGERS 1,000 ML IV SCH (10:37)
[2020-01-13] MEDS ORDERED: MEASLES,MUMPS & RUBELLA VACC 0.5 ML VIAL SUBQ ONE (15:00)
--- NOTE | 2020-01-13 15:32 | Discharge Plan ---
Discharge Plan Problem Reviewed?: Yes Disposition: Home, Self Care Condition: Good Diet: Regular Activity Restrictions: No Restrictions Shower Restrictions: No Driving Restrictions: No Weight Bearing: Full Weight Additional Instructions or Follow Up instructions: Follow up with CNM at 1, 3, and 5 weeks No Smoking: If you smoke, Please STOP! Call for help. Follow-up with: Rosi Hernandez ARNP [Provider Admit Priv/Credential] -
--- NOTE | 2020-01-13 15:35 | PROVIDER PROGRESS NOTE ---
Subjective - Subjective Subjective: FINAL PROGRESS NOTE S: Pt ambulating in room. Reports pain well controlled with PO meds. well and excellent attachment discussed. O: Fundus firm. Lochia light, Perinuem intact. A: Normal course. P: Continue with routine PP care Evaluate for discharge home. Objective - Vital Signs/Intake & Output Vital Signs: Vital Signs x48h Temp Pulse Resp BP 01/13/20 09:00 36.7 C 97 18 109/63 Intake & Output: Intake & Output 01/10/20 01/11/20 01/12/20 01/13/20 23:59 23:59 23:59 23:59 Intake Total 902.5 Output Total 1400 Balance -497.5 - Lab Results Fish Bones: 01/12/20 08:10
--- NOTE | 2020-01-13 15:42 | DISCHARGE SUMMARY ---
Discharge Summary Discharging Provider: Rosi Hernandez CNM Condition at Discharge: Good Discharge Disposition: 01 Home, Self Care - HPI History of Present Illness: Admit Date 01/12/2020 Discharge Date 01/13/2020 Diagnosis on Admission: 1. A 29yo at 39.4 week intrauterine 2. Active Labor 3. Rubella Non-Immune Diagnosis on Discharge 1. A 29yo s/p spontaneous vaginal delivery on 01/12/2020 2. Normal recovery 3. S/P MMR on 01/13/2020 Brief History: She is a patient at [facility] who presented on 01/12/2020 with complaints of contractions. The patient was found to contract every 1 to 4 minutes and her cervix was 6cm dilated, 80%effaced, and -1 station. She progressed normally with AROM and spontaneously delivered a viable female infant named Jacquelyn. Apgars were 9 and 9- and 1 and 5 minutes respectively. EBL 150mL. The patient's perineum was inact She has been doing well in her course. She is ambulating and tolerating a regular diet. She is urinating without difficulty and her lochia is normal. Her pain is well controlled with oral medications. She received MMR on 01/12/2020. She will be discharged home today on day #1 without need for prescriptions. She intends to follow up with myself at [facility] in 1, 3, and 6 weeks for routine visit. She has been given precautions to call if she has any worsening fevers, chills, abdominal pain, increased bleeding or foul smelling vaginal lochia. - ALLERGIES Allergies/Adverse Reactions: Allergies Allergy/AdvReac Type Severity Reaction Status Date / Time No Known Drug Allergies Allergy Verified 12/11/19 23:00 - MEDICATIONS Home Medications: Ambulatory Orders Medication Instructions Recorded Confirmed Famotidine 10 mg PO BID 30 Days #60 tablet 12/12/19 - LABS Result Diagrams: 01/12/20 08:10
[2020-01-13 17:51] VITALS: BP 110/74
--- NOTE | 2020-01-13 17:51 | Labor Flowsheet ---
Labor Flowsheet Datetime Report Generated by CPN: 01/13/2020 17:50 Datetime: 01/13/2020 14:39 VITAL SIGNS NBP Sys/Elida/Mean (mmHg): 110 : 74 : 81 Pulse: 91 LaborFlag: Labor Datetime: 01/12/2020 16:30 Pain Type: N/A Datetime: 01/12/2020 15:45 Pain Presence: None/Denies Datetime: 01/12/2020 15:40 Anesthesia Level Check: T10- Umbilicus Datetime: 01/12/2020 15:00 Anesthesia Comments: epidural turned off by RN Datetime: 01/12/2020 14:50 Medication Comments: Pit up 350mu/hr per CNM Datetime: 01/12/2020 14:43 Duration (sec): 50-70 Actions for Decelerations: Side to Side; Sterile Vaginal Exam; Provider Notified; Other Datetime: 01/12/2020 14:42 UTERINE ACTIVITY Monitor Mode: External Frequency (min): 1.5-3 Quality: Strong Pattern: Normal: <= 5 Contractions in 10 Minutes Resting Tone (Palpate): Relaxed ASSESSMENT A Monitor Mode: External US FHR Baseline Changes: No Baseline Change Variability: Moderate 6-25 bpm Accelerations: None Decelerations: Late; Variable Category: Category II Datetime: 01/12/2020 14:21 Patient Care Comments: lithotomy position Datetime: 01/12/2020 14:10 SpO2 (%): 100 Datetime: 01/12/2020 14:07 Contraction Comments: pushing with contractions Datetime: 01/12/2020 14:06 COMMUNICATION Communication: Provider at Bedside Communication Comments: CNM at bedside Datetime: 01/12/2020 14:00 Pain Assessment Comments: just pressure VAGINAL EXAM Dilatation (cm): 10.0 Effacement (%): 100 Exam by: Dr. Erber Datetime: 01/12/2020 13:50 Station: -1 Datetime: 01/12/2020 13:31 Temperature (C): 37.1 Datetime: 01/12/2020 13:02 FHR Baseline Rate : 140 PATIENT CARE Oxygen Method: Room Air Datetime: 01/12/2020 13:00 Patient Position/Activity: High Fowlers Datetime: 01/12/2020 12:33 Provider Reviewed Strip: Yes Datetime: 01/12/2020 12:32 Vaginal Exam Comments: soft 8, feels more like 6-7 Datetime: 01/12/2020 12:01 Hygiene: Maribeth Care Datetime: 01/12/2020 10:05 Membrane Status: Ruptured Membranes Rupture Method: Artificial Amniotic Fluid Color: Clear Amniotic Fluid Amount: Moderate Amniotic Fluid Odor: None Datetime: 01/12/2020 10:02 Notification Reason: Other Datetime: 01/12/2020 10:01 Comments: min-mod variability Datetime: 01/12/2020 09:20 I/O Interventions: Lainez Cath Inserted Datetime: 01/12/2020 09:03 PAIN Pain Scale: 1 Pain Location: Abdomen Pain Relief Measures: Epidural Given Datetime: 01/12/2020 08:50 Epidural Procedure: Test Dose Datetime: 01/12/2020 08:39 ANESTHESIA Epidural Positioning: Sitting Datetime: 01/12/2020 08:11 MEDICATIONS Analgesics/Sedatives: Fentanyl (mcg) @ 50mcg ivp
== END 2020-01-13 16:00 | disposition home or self-care (01) | DRG 807 ==
LOC: WFO 07:06 → FBP 07:08 → WFO 07:15 → FBP 07:16
PROVIDERS: ADMIT Advanced Practice Midwife; ATTEND Advanced Practice Midwife
PROC: 10E0XZZ Delivery of Products of Conception, External Approach (ICD-10-PCS; principal; 2020-01-12)
DX: O80 Encounter for full-term uncomplicated delivery (principal); Z37.0 Single live birth; Z3A.39 39 weeks gestation of pregnancy; Z98.82 Breast implant status
CPT/HCPCS: 36415; 85025; A9270; J7120; 99213

== ENCOUNTER 2021-02-20 03:57 | Outpatient (CLI) | payer OTHER | END 2021-02-20 03:58 | disposition critical access hospital (66) | LOC: EMS 03:57 | DX: R07.89 Other chest pain (principal); F41.9 Anxiety disorder, unspecified | CPT/HCPCS: A0425; A0429 ==

== ENCOUNTER 2021-02-20 04:19 | Emergency (ER) | payer OTHER ==
--- NOTE | 2021-02-20 04:46 | ED Physician Documentation ---
PD HPI CHEST PAIN - Stated complaint Stated Complaint: L SIDE CP - Chief complaint Chief Complaint: Cardiac - History obtained from History obtained from: Patient - History of Present Illness Timing - onset: How many days ago (5-6) Timing - details: Gradual onset, Intermittant Pain level now: 2 Quality: Pressure (heavy per patient) Worsened by: Inspiration Associated symptoms: Shortness of air Similar symptoms before: Work up / diagnostics, Has not had sx before Recently seen: Not recently seen - Additional information Additional information: patient complains of left-sided chest pain which she describes as a heavy sensation x 5 to 6 days. there is a partial pleuritic component, as well as some degree of exacerbation when she lies left side down. It also is exacerbated with lifting and palpation. she presents tonight because she had an episode of sudden onset of rapid palpitations associated with shortness of breath. These latter symptoms have resolved prior to arrival without intervention. She says tonights symptoms have similarities to previous episodes which were ascribed to panic attacks. Review of Systems Constitutional: reports: Reviewed and negative Cardiac: reports: Chest pain / pressure, Palpitations. denies: Pedal edema, Calf pain Respiratory: reports: Dyspnea. 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 - Present Medications Home Medications: Ambulatory Orders Medication Instructions Recorded Confirmed Sertraline [Zoloft] 25 mg PO DAILY 02/20/21 02/20/21 - Allergies Allergies/Adverse Reactions: Allergies Allergy/AdvReac Type Severity Reaction Status Date / Time No Known Drug Allergies Allergy Verified 02/20/21 04:23 - Social History Does the pt smoke?: No Smoking Status: Never smoker Does the pt drink ETOH?: No Does the pt have substance abuse?: No - Immunizations Immunizations are current?: Yes PD ED PE NORMAL - Vitals Vital signs reviewed: Yes - General General: Alert and oriented X 3, No acute distress, Well developed/nourished - Neck Neck: Supple, no meningeal sign - Cardiac Cardiac: RRR, No murmur, No gallop, No rub - Respiratory Respiratory: No respiratory distress, Clear bilaterally - Abdomen Abdomen: Soft, Non tender - Derm Derm: Normal color, Warm and dry - Extremities Extremities: No edema Results - Vitals Vitals: Oxygen O2 Source Room air - EKG (time done) No standard instances Rate: Rate (enter#) (76) Rhythm: NSR Esmond: Normal Intervals: Normal PA QRS: Normal Ischemia: Normal ST segments - Labs Labs: Laboratory Tests 02/20/21 02/20/21 02/20/21 04:46 04:46 04:46 WBC 6.1 RBC 3.89 L Hgb 11.8 L Hct 34.3 L MCV 88.2 MCH 30.3 MCHC 34.4 RDW 12.6 Plt Count 277 MPV 10.3 Neut # (Auto) 3.7 Lymph # (Auto) 1.9 [place] # (Auto) 0.4 Eos # (Auto) 0.1 Baso # (Auto) 0.0 Absolute Nucleated RBC 0.00 Nucleated RBC % 0.0 D-Dimer < 200.0 L Sodium 135 Potassium 3.4 L Chloride 106 Carbon Dioxide 24 Anion Gap 5.0 L BUN 11 Creatinine 0.4 Estimated GFR (MDRD) 189 Glucose 105 H Calcium 9.0 Total Bilirubin 0.8 AST 19 ALT 14 Alkaline Phosphatase 54 Total Protein 7.4 Albumin 4.5 Globulin 2.9 Albumin/Globulin Ratio 1.6 Lipase 27 - Rads (name of study) chest xray Radiology: Prelim report reviewed, See rad report PD MEDICAL DECISION MAKING - ED course Complexity details: reviewed results, re-evaluated patient, considered differential, d/w patient ED course: unremarkable work up including chest x-ray, EKG, and blood tests. Applying PERC criteria, she rules out for PE. a d-dimer is performed due to the pleuritic descriptor and report of dyspnea and rapid palpitations earlier tonight, and this result is negative. results reviewed with patient and she is comfortable with d/c home Departure - Departure Disposition: 01 Home, Self Care Clinical Impression: Hypokalemia Chest pain Qualifiers: Chest pain type: unspecified Qualified Code(s): R07.9 - Chest pain, unspecified Condition: Good Instructions: ED Chest Pain Atypical Unkn Cause, ED Potassium Deficiency Follow-Up: JAMES Núñez [Provider Group] Discharge Date/Time: 02/20/21 07:33
[2021-02-20 05:19] LABS: BASOPHILS % (AUTO) 0.7 %; EOSINOPHILS # (AUTO) 0.1 10^3/uL (0.0-0.7); EOSINOPHILS % (AUTO) 0.8 %; HCT - HEMATOCRIT 34.3 % (37.0-47.0); HGB - HEMOGLOBIN 11.8 g/dL (12.0-16.0); LYMPHOCYTES # (AUTO) 1.9 10^3/uL (1.5-3.5); LYMPHOCYTES % (AUTO) 31.3 %; MEAN CORPUSCULAR HEMOGLOBIN 30.3 pg (27.0-31.0); MEAN CORPUSCULAR HGB CONC 34.4 g/dL (32.0-36.0); MEAN CORPUSCULAR VOLUME 88.2 fL (81.0-99.0); MEAN PLATELET VOLUME 10.3 fL (7.9-10.8); MONOCYTES # (AUTO) 0.4 10^3/uL (0.0-1.0); MONOCYTES % (AUTO) 6.7 %; NEUTROPHILS # (AUTO) 3.7 10^3/uL (1.5-6.6); NEUTROPHILS % (AUTO) 60.2 %; PLT - PLATELET COUNT 277 10^3/uL (130-450); RED BLOOD COUNT 3.89 10^6/uL (4.20-5.40); RED CELL DISTRIBUTION WIDTH 12.6 % (12.0-15.0); WHITE BLOOD COUNT 6.1 x10^3/uL (4.8-10.8)
[2021-02-20 05:28] LABS: ALBUMIN 4.5 g/dL (3.2-5.5); ALBUMIN/GLOBULIN RATIO 1.6 (1.0-2.2); BILIRUBIN,TOTAL 0.8 mg/dL (0.2-1.0); CREATININE 0.4 mg/dL (0.4-1.0); POTASSIUM 3.4 mmol/L (3.5-5.0); TOTAL PROTEIN 7.4 g/dL (6.7-8.2)
[2021-02-20] MEDS ORDERED: POTASSIUM CHLORIDE 20 MEQ TABLET PO STA (06:37)
[2021-02-20 06:59] VITALS: BP 115/60
--- NOTE | 2021-02-20 11:39 | XRAY Report ---
PROCEDURE: Chest 2 View X-Ray INDICATIONS: chest pain TECHNIQUE: 2 view(s) of the chest. COMPARISON: None. FINDINGS: Surgical changes and devices: None. Lungs and pleura: No pleural effusions or pneumothorax. Lungs are clear. Mediastinum: Mediastinal contours are normal. Heart size is normal. Bones and chest wall: No suspicious bony abnormalities. Soft tissues appear unremarkable. IMPRESSION: No acute pulmonary process. The above findings are concordant with preliminary report. Reviewed by: Shasha Shetty MD on 02/20/2021 11:38 AM PDT Approved by: Shasha Shetty MD on 02/20/2021 11:38 AM PDT Station ID: [id number]
== END 2021-02-20 07:33 | disposition home or self-care (01) ==
LOC: EDUNIT# → ED 04:19
DX: E87.6 Hypokalemia (principal); R07.89 Other chest pain
CPT/HCPCS: 36415; 71046; 80053; 83690; 85025; 85379; 93005; 99283; 99284; A9270

== ENCOUNTER 2021-04-04 10:28 | Emergency (ER) | payer OTHER ==
[2021-04-04 10:47] VITALS: BP 124/70
[2021-04-04] MEDS ORDERED: PROPARACAINE 0.5% OPHTH DROPS 15 ML EACHEYE STA (12:14)
--- NOTE | 2021-04-04 12:36 | ED Physician Documentation ---
PD HPI OPHTHO - Stated complaint Stated Complaint: LT EYE PX - Chief complaint Chief Complaint: Heent - History obtained from History obtained from: Patient - History of Present Illness Timing - onset: Today Timing - duration: Days (1) Timing - details: Abrupt onset Pain level max: 6 Pain level now: 5 Location: Left Quality / character: Burning, Aching Associated symptoms: Redness, Swelling, Tearing, FB sensation, Photophobia. 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 - Present Medications Home Medications: Ambulatory Orders Medication Instructions Recorded Confirmed Sertraline [Zoloft] 25 mg PO DAILY 02/20/21 04/04/21 Ofloxacin 0.3% Ophth Drops 2 drops LEFTEYE Q4H #5 ml 04/04/21 [Ocuflox 0.3% Ophth Drops] - Allergies Allergies/Adverse Reactions: Allergies Allergy/AdvReac Type Severity Reaction Status Date / Time No Known Drug Allergies Allergy Verified 04/04/21 10:47 - Social History Does the pt smoke?: No Smoking Status: Never smoker Does the pt drink ETOH?: No Does the pt have substance abuse?: No - Immunizations Immunizations are current?: Yes PD ED PE NORMAL - Vitals Vital signs reviewed: Yes - General General: Alert and oriented X 3, No acute distress - HEENT HEENT: Moist mucous membranes, Other (Right eye is normal. Left eye - Symptoms resolved completely with proparacaine. There is a small area of fluorescein uptake in the inferolateral quadrant of the cornea. Conjunctival injection present. No foreign body. Eyelids everted.) - Neck Neck: Supple, no meningeal sign - Derm Derm: Warm and dry - Neuro Neuro: Alert and oriented X 3 Results - Vitals Vitals: Vital Signs - 24 hr 04/04/21 10:45 Temperature 36.2 C L Heart Rate 84 Respiratory 16 Rate Blood Pressure 124/70 O2 Saturation 100 Oxygen O2 Source Room air PD MEDICAL DECISION MAKING - ED course Complexity details: considered differential, d/w patient ED course: Patient is a 30-year-old female who wears contact lenses and occasionally does sleep in her contacts. Appears to have a corneal abrasion, could be an early corneal ulcer. We will place her on Ocuflox as she does wear contacts. Patient can follow-up with ophthalmology for further care. Patient counseled regarding signs and symptoms for which I believe and urgent re-evaluation would be necessary. Patient with good understanding of and agreement to plan and is comfortable going home at this time This document was made in part using voice recognition software. While efforts are made to proofread this document, sound alike and grammatical errors may occur. Follow-up with ophthalmology for further care. Is counseled not to sleep in contact lenses. Departure - Departure Disposition: 01 Home, Self Care Clinical Impression: Corneal abrasion Qualifiers: Encounter type: initial encounter Laterality: left Qualified Code(s): S05.02XA - Injury of conjunctiva and corneal abrasion without foreign body, left eye, initial encounter Condition: Good Instructions: ED Eye Injury Corneal Abrasion Follow-Up: Pk Brown MD [Provider Admit Priv/Credential] - Within 3 Days (if not better ) Prescriptions: Ofloxacin 0.3% Ophth Drops [Ocuflox 0.3% Ophth Drops] 2 drops LEFTEYE Q4H #5 ml Comments: Use the eye drops as prescribed. Do not wear contacts until this is healed. Return if you worsen. you can follow up with ophthalmology if not improving. Discharge Date/Time: 04/04/21 12:39
== END 2021-04-04 12:39 | disposition home or self-care (01) ==
LOC: ED 10:28
DX: H18.822 Corneal disorder due to contact lens, left eye (principal); F41.9 Anxiety disorder, unspecified
CPT/HCPCS: 99282; 99284; J3490

== ENCOUNTER 2021-10-14 20:24 | Emergency (ER) | payer OTHER ==
--- NOTE | 2021-10-14 20:53 | ED Physician Documentation ---
History of Present Illness - Stated complaint Stated Complaint: BLEEDING POST SURG - Chief complaint Chief Complaint: General - History obtained from History obtained from: Patient - Additonal information Additional information: 4 days ago she had some sort of procedure done, sounds like a large skin tag removed from her vagina. She was doing well but suddenly started bleeding heavily just prior to arrival. No pain. 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 - Present Medications Home Medications: Ambulatory Orders Medication Instructions Recorded Confirmed Sertraline [Zoloft] 25 mg PO DAILY 02/20/21 04/04/21 Ofloxacin 0.3% Ophth Drops 2 drops LEFTEYE Q4H #5 ml 04/04/21 [Ocuflox 0.3% Ophth Drops] - Allergies Allergies/Adverse Reactions: Allergies Allergy/AdvReac Type Severity Reaction Status Date / Time No Known Drug Allergies Allergy Verified 10/14/21 20:33 - Social History Does the pt smoke?: No Smoking Status: Never smoker Does the pt drink ETOH?: No Does the pt have substance abuse?: No - Immunizations Immunizations are current?: Yes PD ED PE NORMAL - Vitals Vital signs reviewed: Yes - General General: Alert and oriented X 3, No acute distress - Female 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 2 [id number] sutures were placed with hemostasis. The suture material was 4-0 Vicryl. She was observed for quite some time afterward and there was no significant further bleeding. Departure - Departure Disposition: 01 Home, Self Care Clinical Impression: Postoperative bleeding from incision Condition: Good Record reviewed to determine appropriate education?: Yes Instructions: ED Wound Check Post Op Bleeding Comments: As discussed, return if worsening. Call your surgeon on Friday to let them know that he required a few more stitches to stanch a small arterial bleed. Pelvic rest (no sex) for 3 weeks at least. Discharge Date/Time: 10/14/21 21:45
[2021-10-14 21:40] VITALS: BP 109/65
== END 2021-10-14 21:45 | disposition home or self-care (01) ==
LOC: ED 20:24
DX: L76.22 Postprocedural hemorrhage of skin and subcutaneous tissue following other procedure (principal); Y83.9 Surgical procedure, unspecified as the cause of abnormal reaction of the patient, or of later complication, without mention of misadventure at the time of the procedure
CPT/HCPCS: 12001; 99281

== ENCOUNTER 2021-10-17 21:32 | Outpatient (CLI) | payer OTHER | END 2021-10-17 21:33 | disposition critical access hospital (66) | LOC: EMS 21:32 | DX: R00.2 Palpitations (principal); R42 Dizziness and giddiness | CPT/HCPCS: A0425; A0429 ==

== ENCOUNTER 2021-10-17 21:54 | Emergency (ER) | payer OTHER ==
[2021-10-17 22:12] LABS: BASOPHILS # (AUTO) 0.1 10^3/uL (0.0-0.1); BASOPHILS % (AUTO) 0.6 %; EOSINOPHILS # (AUTO) 0.2 10^3/uL (0.0-0.7); HCT - HEMATOCRIT 33.5 % (37.0-47.0); HGB - HEMOGLOBIN 11.3 g/dL (12.0-16.0); LYMPHOCYTES # (AUTO) 2.9 10^3/uL (1.5-3.5); LYMPHOCYTES % (AUTO) 34.1 %; MEAN CORPUSCULAR HEMOGLOBIN 30.3 pg (27.0-31.0); MEAN CORPUSCULAR HGB CONC 33.7 g/dL (32.0-36.0); MEAN CORPUSCULAR VOLUME 89.8 fL (81.0-99.0); MEAN PLATELET VOLUME 9.9 fL (7.9-10.8); MONOCYTES # (AUTO) 0.5 10^3/uL (0.0-1.0); MONOCYTES % (AUTO) 5.8 %; NEUTROPHILS # (AUTO) 4.9 10^3/uL (1.5-6.6); NEUTROPHILS % (AUTO) 57.2 %; PLT - PLATELET COUNT 276 10^3/uL (130-450); RED BLOOD COUNT 3.73 10^6/uL (4.20-5.40); RED CELL DISTRIBUTION WIDTH 12.2 % (12.0-15.0); WHITE BLOOD COUNT 8.6 x10^3/uL (4.8-10.8)
[2021-10-17 22:24] LABS: CALCIUM 9.2 mg/dL (8.5-10.3); CREATININE 0.6 mg/dL (0.4-1.0); POTASSIUM 3.6 mmol/L (3.5-5.0)
--- NOTE | 2021-10-18 03:18 | ED Physician Documentation ---
History of Present Illness - Stated complaint Stated Complaint: ANXIETY, SHAKING - Chief complaint Chief Complaint: Neuro - History obtained from History obtained from: Patient - Additonal information Additional information: 31yF with pmh continuous vaginal bleeding for the past 6 months, s/p vaginal procedure last week and stitch replacement yesterday p/w tremors and shaking accompanied by dizziness and sensation similar to prior panic attacks, occurring this past evening. patient called ems and was brought in for evaluation. denies vaginal bleeding since stitch was placed yesterday. denies fever, weakness, loc, nausea, soa. Review of Systems Ten Systems: 10 systems reviewed and negative Constitutional: denies: Fever Cardiac: denies: Chest pain / pressure Respiratory: denies: Dyspnea : reports: Vaginal bleeding ((previous vaginal bleeding)). 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 Medications Home Medications: Ambulatory Orders Medication Instructions Recorded Confirmed Sertraline [Zoloft] 25 mg PO DAILY 02/20/21 04/04/21 Ofloxacin 0.3% Ophth Drops 2 drops LEFTEYE Q4H #5 ml 04/04/21 [Ocuflox 0.3% Ophth Drops] - Allergies Allergies/Adverse Reactions: Allergies Allergy/AdvReac Type Severity Reaction Status Date / Time No Known Drug Allergies Allergy Verified 10/17/21 22:01 - Social History Does the pt smoke?: No Smoking Status: Never smoker Does the pt drink ETOH?: No Does the pt have substance abuse?: No - Immunizations Immunizations are current?: Yes PD ED PE NORMAL - Vitals Vital signs reviewed: Yes - General General: Alert and oriented X 3, No acute distress, Well developed/nourished - HEENT HEENT: Atraumatic, PERRL, EOMI - Neck Neck: Supple, no meningeal sign - Cardiac Cardiac: RRR - Respiratory Respiratory: No respiratory distress, Clear bilaterally - Abdomen Abdomen: Non tender, Non distended - Back Back: No CVA TTP - Derm Derm: Normal color, Warm and dry - Extremities Extremities: No deformity - Neuro Neuro: Alert and oriented X 3, No motor deficit, No sensory deficit - Psych Psych: Normal mood, Normal affect Results - Vitals Vitals: Vital Signs - 24 hr 10/17/21 10/17/21 10/17/21 22:01 22:43 22:44 Temperature 36.7 C Heart Rate 123 H Heart Rate [ 120 H Sitting] Heart Rate [ 123 H Standing] Heart Rate [ 117 H 117 H Supine] Respiratory 15 Rate Blood Pressure 116/58 L Blood Pressure 113/67 [Sitting] Blood Pressure 112/78 [Standing] Blood Pressure 106/61 106/61 [Supine] O2 Saturation 98 10/17/21 10/18/21 10/18/21 23:57 00:27 02:00 Temperature Heart Rate 101 H 87 89 Heart Rate [ Sitting] Heart Rate [ Standing] Heart Rate [ Supine] Respiratory 16 12 15 Rate Blood Pressure 101/60 103/58 L 105/62 Blood Pressure [Sitting] Blood Pressure [Standing] Blood Pressure [Supine] O2 Saturation 99 98 98 Oxygen O2 Source Room air - Labs Labs: Laboratory Tests 10/17/21 10/17/21 22:08 22:08 WBC 8.6 RBC 3.73 L Hgb 11.3 L Hct 33.5 L MCV 89.8 MCH 30.3 MCHC 33.7 RDW 12.2 Plt Count 276 MPV 9.9 Neut # (Auto) 4.9 Lymph # (Auto) 2.9 [place] # (Auto) 0.5 Eos # (Auto) 0.2 Baso # (Auto) 0.1 Absolute Nucleated RBC 0.00 Nucleated RBC % 0.0 Sodium 135 Potassium 3.6 Chloride 103 Carbon Dioxide 25 Anion Gap 7.0 BUN 12 Creatinine 0.6 Estimated GFR (MDRD) 117 Glucose 146 H Calcium 9.2 PD MEDICAL DECISION MAKING - ED course ED course: 31-year-old woman presents for medical evaluation after vaginal procedure recently with subsequent dizziness this past evening. Lab work noncontributory. Hemoglobin stable. Return precautions given. Patient will follow up with Dr. Hester this Friday. Departure - Departure Disposition: 01 Home, Self Care Clinical Impression: Dizziness, Shaking, Anemia Condition: Good Instructions: Anemia Comments: You are seen in the emergency department for evaluation after experiencing shaking and dizziness. Your hemoglobin stable from previous labs, meaning that you are not having significant life-threatening bleeding. You should keep your follow-up appointment with your doctor on Friday and return to the emergency department if you have any new or worsening symptoms or other concerns.
[2021-10-18 03:32] VITALS: BP 102/63
== END 2021-10-18 03:31 | disposition home or self-care (01) ==
LOC: EDUNIT# → EDBD → ED 21:54 → SUPCPDRO 21:54 → ED 10-18 03:31
DX: D64.9 Anemia, unspecified (principal); R42 Dizziness and giddiness; R56.9 Unspecified convulsions
CPT/HCPCS: 36415; 80048; 85025; 99282; 99283

== ENCOUNTER 2023-01-07 09:38 | Outpatient (CLI) | payer OTHER ==
[2023-01-07 11:42] LABS: BASOPHILS # (AUTO) 0.1 10^3/uL (0.0-0.1); BASOPHILS % (AUTO) 0.8 %; EOSINOPHILS # (AUTO) 0.1 10^3/uL (0.0-0.7); EOSINOPHILS % (AUTO) 0.8 %; HCT - HEMATOCRIT 39.8 % (37.0-47.0); HGB - HEMOGLOBIN 12.9 g/dL (12.0-16.0); LYMPHOCYTES # (AUTO) 2.2 10^3/uL (1.5-3.5); MEAN CORPUSCULAR HEMOGLOBIN 28.7 pg (27.0-31.0); MEAN CORPUSCULAR HGB CONC 32.4 g/dL (32.0-36.0); MEAN CORPUSCULAR VOLUME 88.6 fL (81.0-99.0); MEAN PLATELET VOLUME 10.3 fL (7.9-10.8); MONOCYTES # (AUTO) 0.3 10^3/uL (0.0-1.0); MONOCYTES % (AUTO) 4.5 %; NEUTROPHILS # (AUTO) 3.4 10^3/uL (1.5-6.6); NEUTROPHILS % (AUTO) 56.6 %; PLT - PLATELET COUNT 355 10^3/uL (130-450); RED BLOOD COUNT 4.49 10^6/uL (4.20-5.40); RED CELL DISTRIBUTION WIDTH 13.2 % (12.0-15.0); WHITE BLOOD COUNT 6.1 x10^3/uL (4.8-10.8)
[2023-01-07 12:12] LABS: ALBUMIN 4.5 g/dL (3.2-5.5); ALBUMIN/GLOBULIN RATIO 1.3 (1.0-2.2); ALKALINE PHOSPHATASE 51 IU/L (42-121); ALT ALANINE AMINOTRANSFERASE 22 IU/L (10-60); AST ASPARTATE AMINOTRANSFERASE 23 IU/L (10-42); BILIRUBIN,TOTAL 0.8 mg/dL (0.2-1.0); BUN - BLOOD UREA NITROGEN 11 mg/dL (6-20); CALCIUM 9.2 mg/dL (8.5-10.3); CARBON DIOXIDE - CO2 28 mmol/L (21-32); CHLORIDE 104 mmol/L (101-111); CHOL/HDL RATIO 2.5 (<4.4); CHOLESTEROL 191 mg/dL; CREATININE 0.4 mg/dL (0.4-1.0); GFR - MDRD 186 (>89); GLUCOSE 96 mg/dL (70-100); HDL CHOLESTEROL 77 mg/dL; LDL CHOLESTEROL,CALCULATED 101 mg/dL; LDL/HDL RATIO 1.3 (<4.4); POTASSIUM 4.5 mmol/L (3.5-5.0); SODIUM 138 mmol/L (135-145); TRIGLYCERIDES 63 mg/dL; VLDL CHOLESTEROL 13 mg/dL
[2023-01-07 12:23] LABS: THYROID STIMULATING HORMONE 2.27 uIU/mL (0.34-5.60)
== END 2023-01-07 09:39 | disposition home or self-care (01) ==
LOC: LAB.N 09:38
PROVIDERS: ATTEND Physician Assistant
DX: Z13.9 Encounter for screening, unspecified (principal); Z13.220 Encounter for screening for lipoid disorders; Z13.29 Encounter for screening for other suspected endocrine disorder
CPT/HCPCS: 36415; 80053; 80061; 83721; 84443; 85025